=== PATIENT | female | born 1965 | race Caucasian/White ===

== ENCOUNTER 2017-02-11 07:37 | Inpatient (IN) | payer OTHER ==
[~2017-02-11] VITALS: Ht 165.1 cm; Wt 102.7 kg
[~2017-02-11 07:37] MED LIST: ATIVAN1 MG PO; CLONIDINE HCL0.1 MG PO; HYDROCHLOROTHIA25 MG PO; ZES20 PO
[2017-02-11 08:48] LABS: CALCIUM 7.8 mg/dL (8.5-10.1); CHLORIDE SERUM 103 mmol/L (98-107); CREATININE SERUM 0.7 mg/dL (0.6-1.0); GFR1 > 60 mL/min; GLUCOSE SERUM 140 mg/dL (74-106); POTASSIUM SERUM 3.4 mmol/L (3.5-5.1); SODIUM SERUM 135 mmol/L (136-145)
[2017-02-11 08:52] LABS: ALKALINE PHOSPHATASE 59 U/L (46-116); ALT/SGPT 13 U/L (14-59); AST/SGOT 15 U/L (15-37); BILIRUBIN TOTAL 0.47 mg/dL (0.20-1.00); CHOLESTEROL 150 mg/dL (<200); TOTAL PROTEIN, SERUM 6.5 g/dL (6.4-8.2)
[2017-02-11 08:54] LABS: ALBUMIN 3.1 g/dL (3.4-5.0)
[2017-02-11 09:06] LABS: BASOPHIL % 0.4 % (0-2); PLATELET COUNT 272 x10^3mcL (130-400)
[2017-02-11 09:07] LABS: RED CELL DISTRIBUTION WIDTH 25.2 % (11.5-14.5)
[2017-02-11 09:16] LABS: AMPHETAMINE QUAL UR NONE DETECTED (NEG <=1000)
[2017-02-11 09:19] LABS: microscopic required? YES; urine erythrocyte 3+ (NEGATIVE)
[2017-02-11 09:41] LABS: rbc morphology (normal/abnorm) ABNORMAL (NORMAL)
[2017-02-11 11:37] VITALS: BP 158/66
[2017-02-11 12:02] LABS: MAGNESIUM 1.7 mg/dL (1.8-2.4); PHOSPHOROUS 2.6 mg/dL (2.5-4.9)
[2017-02-11 12:05] LABS: CHOLESTEROL/HDL RATIO 1.6
[2017-02-11 12:07] LABS: T3 TOTAL 1.26 ng/mL
[2017-02-11 12:24] LABS: FREE T4 1.05 ng/dL (0.76-1.46); FREE THYROXINE INDEX 2.7 ug/dL (1.4-4.5); T4(THYROXINE) 10.1 ug/dL (4.7-13.3)
[2017-02-11 15:36] VITALS: BP 136/61
[2017-02-11 15:49] LABS: RED BLOOD CELLS 3.03 M/mm3 (4.10-5.10)
[2017-02-11 16:39] LABS: IRON 354 ug/dL (50-170); TOTAL IRON BINDING CAPACITY 529 ug/dL (250-450)
[2017-02-11 18:43] VITALS: BP 148/76
[2017-02-11 20:30] VITALS: BP 124/61
[2017-02-12 05:50] VITALS: BP 151/75
[2017-02-12 06:59] LABS: BASOPHIL % 0.2 % (0-2); PLATELET COUNT 266 x10^3mcL (130-400)
[2017-02-12 07:05] LABS: RED CELL DISTRIBUTION WIDTH 25.2 % (11.5-14.5)
[2017-02-12 07:13] LABS: rbc morphology (normal/abnorm) ABNORMAL (NORMAL)
[2017-02-12 07:15] LABS: CALCIUM 8.1 mg/dL (8.5-10.1); CARBON DIOXIDE 23.1 mmol/L (21-32); CHLORIDE SERUM 104 mmol/L (98-107); CREATININE SERUM 0.8 mg/dL (0.6-1.0); GFR1 > 60 mL/min; GLUCOSE SERUM 145 mg/dL (74-106); MAGNESIUM 1.9 mg/dL (1.8-2.4); PHOSPHOROUS 2.9 mg/dL (2.5-4.9); POTASSIUM SERUM 4.1 mmol/L (3.5-5.1); SODIUM SERUM 138 mmol/L (136-145)
[2017-02-12 09:08] VITALS: BP 121/61
[2017-02-12 13:14] VITALS: BP 109/53
[2017-02-12 14:21] LABS: BASOPHIL % 0.2 % (0-2); PLATELET COUNT 220 x10^3mcL (130-400)
[2017-02-12 14:27] LABS: RED CELL DISTRIBUTION WIDTH 25.3 % (11.5-14.5)
[2017-02-12 16:06] VITALS: Ht 165.1 cm; Wt 102.7 kg
[2017-02-12 16:15] LABS: rbc morphology (normal/abnorm) ABNORMAL (NORMAL)
[2017-02-12 17:22] VITALS: BP 123/88
[2017-02-12 21:06] VITALS: BP 111/50
[2017-02-13 06:19] LABS: BASOPHIL % 0.3 % (0-2); PLATELET COUNT 195 x10^3mcL (130-400)
[2017-02-13 06:33] VITALS: BP 139/63
[2017-02-13 06:37] LABS: CALCIUM 7.7 mg/dL (8.5-10.1); CARBON DIOXIDE 25.8 mmol/L (21-32); CHLORIDE SERUM 106 mmol/L (98-107); CREATININE SERUM 0.7 mg/dL (0.6-1.0); GFR1 > 60 mL/min; GLUCOSE SERUM 91 mg/dL (74-106); MAGNESIUM 1.8 mg/dL (1.8-2.4); PHOSPHOROUS 2.9 mg/dL (2.5-4.9); SODIUM SERUM 141 mmol/L (136-145)
[2017-02-13 06:53] LABS: RED CELL DISTRIBUTION WIDTH 23.2 % (11.5-14.5)
[2017-02-13 06:56] LABS: rbc morphology (normal/abnorm) ABNORMAL (NORMAL)
[2017-02-13 09:09] VITALS: BP 122/55
[2017-02-13 12:58] LABS: BASOPHIL % 0.3 % (0-2); PLATELET COUNT 212 x10^3mcL (130-400); RED CELL DISTRIBUTION WIDTH 22.9 % (11.5-14.5)
[2017-02-13 13:28] VITALS: BP 120/54
[2017-02-13] MEDS ORDERED: FER300 PO (13:57)
[2017-02-13] MEDS ORDERED: LEXAPRO10 MG PO (13:57)
[2017-02-13] MEDS ORDERED: COL100 PO (13:58)
[2017-02-13] MEDS ORDERED: ATI1 PO (13:58)
[2017-02-13] MEDS ORDERED: BACTRIM DS1 TAB PO (13:59)
[2017-02-13] MEDS ORDERED: PHARMASSURE VI500 MG PO (14:01)
[2017-02-13 14:39] VITALS: BP 120/54
== END 2017-02-13 15:49 | disposition home or self-care (01) | DRG 517 ==
LOC: ED 07:37 → DU 10:49
PROVIDERS: Emergency Medicine; Family Medicine; Obstetrics & Gynecology; ADMIT Family Medicine
PROC: 30233N1 Transfusion of Nonautologous Red Blood Cells into Peripheral Vein, Percutaneous Approach (ICD-10-PCS; 2017-02-11)
PROC: 0UDB7ZZ Extraction of Endometrium, Via Natural or Artificial Opening (ICD-10-PCS; principal; 2017-02-11 13:30)
DX: D25.9 Leiomyoma of uterus, unspecified (principal); N17.0 Acute kidney failure with tubular necrosis; E44.0 Moderate protein-calorie malnutrition; N39.0 Urinary tract infection, site not specified; D62 Acute posthemorrhagic anemia; E87.1 Hypo-osmolality and hyponatremia; E83.42 Hypomagnesemia; N92.1 Excessive and frequent menstruation with irregular cycle; I10 Essential (primary) hypertension; Z72.89 Other problems related to lifestyle; Z68.37 Body mass index [BMI] 37.0-37.9, adult; E87.6 Hypokalemia; E66.9 Obesity, unspecified; D64.9 Anemia, unspecified; Z82.49 Family history of ischemic heart disease and other diseases of the circulatory system
CPT/HCPCS: 80307; 83880; 84439; G0480; J0696; J3010; J7030; J7040; J7050; P9016; Q0092; Q0163

== ENCOUNTER 2018-01-01 00:30 | Inpatient (IN) | payer OTHER ==
[2018-01-01] VITALS (8 sets, daily range): BP systolic 119–182; BP diastolic 56–89; Ht 165.1 cm; Wt 90.7 kg
[~2018-01-01] VITALS: Ht 165.1 cm; Wt 90.7 kg
[~2018-01-01 00:30] MED LIST changes: +ATI1 PO; +BACTRIM DS1 TAB PO; +COL100 PO; +FER300 PO; +LEXAPRO10 MG PO; +PHARMASSURE VI500 MG PO
[2018-01-01 03:19] LABS: BASOPHIL % 0.5 % (0-2); PLATELET COUNT 218 x10^3mcL (130-400)
[2018-01-01 03:20] LABS: RED CELL DISTRIBUTION WIDTH 20.6 % (11.5-14.5)
[2018-01-01 03:33] LABS: CALCIUM 8.4 mg/dL (8.5-10.1); CHLORIDE SERUM 102 mmol/L (98-107); CREATININE SERUM 0.8 mg/dL (0.6-1.0); GFR1 > 60 mL/min; GLUCOSE SERUM 117 mg/dL (74-106); POTASSIUM SERUM 3.9 mmol/L (3.5-5.1); SODIUM SERUM 138 mmol/L (136-145)
[2018-01-01 03:35] LABS: AMPHETAMINE QUAL UR NONE DETECTED (NEG <=1000)
[2018-01-01 03:39] LABS: ALBUMIN 3.5 g/dL (3.4-5.0); ALKALINE PHOSPHATASE 59 U/L (46-116); ALT/SGPT 26 U/L (14-59); AST/SGOT 20 U/L (15-37); BILIRUBIN TOTAL 0.4 mg/dL (0.20-1.00); LIPASE 260 IU/L (73-393); TOTAL PROTEIN, SERUM 7.6 g/dL (6.4-8.2)
[2018-01-01 06:38] LABS: T3 TOTAL 1.06 ng/mL
[2018-01-01 06:41] LABS: MAGNESIUM 1.6 mg/dL (1.8-2.4); PHOSPHOROUS 3.5 mg/dL (2.5-4.9)
[2018-01-01 06:51] LABS: FREE T4 0.86 ng/dL (0.76-1.46); FREE THYROXINE INDEX 2.2 ug/dL (1.4-4.5); T4(THYROXINE) 6.6 ug/dL (4.7-13.3)
[2018-01-01 12:07] LABS: RED BLOOD CELLS 3.43 M/mm3 (4.10-5.10)
[2018-01-01 15:39] LABS: IRON 57 ug/dL (50-170); TOTAL IRON BINDING CAPACITY 431 ug/dL (250-450)
[2018-01-02 06:23] VITALS: BP 159/78
[2018-01-02 08:51] LABS: BASOPHIL % 0.5 % (0-2); PLATELET COUNT 168 x10^3mcL (130-400)
[2018-01-02 09:14] VITALS: BP 126/60
[2018-01-02 11:14] LABS: CARBON DIOXIDE 24.1 mmol/L (21-32); CHLORIDE SERUM 103 mmol/L (98-107); CREATININE SERUM 0.7 mg/dL (0.6-1.0); GFR1 > 60 mL/min; GLUCOSE SERUM 96 mg/dL (74-106); MAGNESIUM 1.9 mg/dL (1.8-2.4); PHOSPHOROUS 3.2 mg/dL (2.5-4.9); POTASSIUM SERUM 3.9 mmol/L (3.5-5.1); SODIUM SERUM 128 mmol/L (136-145)
[2018-01-02 13:08] LABS: BASOPHIL % 0.3 % (0-2); PLATELET COUNT 210 x10^3mcL (130-400)
[2018-01-02 13:17] LABS: RED CELL DISTRIBUTION WIDTH 20.4 % (11.5-14.5)
[2018-01-02 13:52] VITALS: BP 144/74
[2018-01-02 14:58] VITALS: BP 144/74
[2018-01-02] MEDS ORDERED: ZES20 PO (15:07)
[2018-01-02] MEDS ORDERED: LEXAPRO10 MG PO (15:07)
[2018-01-02] MEDS ORDERED: LIB25 PO (15:08)
[2018-01-02] MEDS ORDERED: IMO2 PO (15:09)
[2018-01-02] MEDS ORDERED: THI100 PO (15:10)
[2018-01-02] MEDS ORDERED: FOL1 PO (15:10)
[2018-01-02] MEDS ORDERED: THERAGRAN-M1 TA4 PO (15:10)
[2018-01-02] MEDS ORDERED: SOD1 PO (15:32)
[2018-01-05 04:27] LABS: VITAMIN B1 (THIAMINE) 127.6 nmol/L (66.5-200.0)
== END 2018-01-02 19:00 | disposition home or self-care (01) | DRG 775 ==
LOC: ED 00:30 → DU 05:22
PROVIDERS: Emergency Medicine Emergency Medical Services; Family Medicine
DX: F10.239 Alcohol dependence with withdrawal, unspecified (principal); K85.90 Acute pancreatitis without necrosis or infection, unspecified; R56.9 Unspecified convulsions; E83.42 Hypomagnesemia; I10 Essential (primary) hypertension; G90.8 Other disorders of autonomic nervous system; Y90.9 Presence of alcohol in blood, level not specified; E86.0 Dehydration; F32.9 Major depressive disorder, single episode, unspecified; F41.1 Generalized anxiety disorder; Z83.3 Family history of diabetes mellitus; Z82.49 Family history of ischemic heart disease and other diseases of the circulatory system; D64.9 Anemia, unspecified; E66.9 Obesity, unspecified; Z68.33 Body mass index [BMI] 33.0-33.9, adult
CPT/HCPCS: 83880; 84207; 84425; 84439; G0480; J2405; J3475; J7030; Q0092; Q0162